=== PATIENT | male | born 1990 | race Caucasian/White ===

== ENCOUNTER 2022-08-05 15:55 | Emergency (ER) | payer BC, OTHER ==
[~2022-08-05] VITALS: Ht 188 cm; Wt 82.0 kg
[2022-08-05] MEDS ORDERED: CLIN300C8 PO (20:41)
[2022-08-05] MEDS ORDERED: KETOROLAC TROMETH 60MG/2ML VIAL IM ONE (20:45)
[2022-08-05 21:05] VITALS: BP 109/81
== END 2022-08-05 21:12 | disposition home or self-care (01) ==
LOC: ER 15:55
DX: K04.7 Periapical abscess without sinus (principal); J45.909 Unspecified asthma, uncomplicated; Z88.0 Allergy status to penicillin
CPT/HCPCS: 96372; 99283; J1885